=== PATIENT | female | born 1985 | race Two or more races ===

== ENCOUNTER 2023-05-18 13:32 | Emergency (ER) | payer OTHER ==
[~2023-05-18] VITALS: Ht 160 cm; Wt 61.4 kg
[~2023-05-18 13:32] MED LIST: MEDR150V13 IM
[2023-05-18 13:38] VITALS: TEMP 98.3
[2023-05-18 15:30] VITALS: BP 137/84; PULSE 98; RESP 18
[2023-05-18] MEDS ORDERED: IBUP-1492 PO (16:18)
== END 2023-05-18 16:42 | disposition home or self-care (01) ==
LOC: EMS 13:32
DX: S93.401A Sprain of unspecified ligament of right ankle, initial encounter (principal); X58.XXXA Exposure to other specified factors, initial encounter; Y93.89 Activity, other specified; Y92.89 Other specified places as the place of occurrence of the external cause; Y99.8 Other external cause status
CPT/HCPCS: 29515; 99284; 73610-TC; 73630-TC; Z7502